=== PATIENT | male | born 1935 | race Asian ===

== ENCOUNTER → 2017-02-15 | Day surgery (SDC) | payer BC, OTHER ==
[~2017-02-15] VITALS: Ht 160 cm; Wt 81.6 kg
[~2017-02-15] MED LIST: ACETAMINOPHEN 325 MG TAB PO PRN; ACETYLCHOLINE OPHTH SOLN 1% 2ML As Ordered ONE; ASPI32ECTA PO; AcetaZOLAMIDE 500 MG ER CAP PO ONE; BALANCED SALT IRRIGATION SOLUTION 500ML BAG (FOR OR EYE MACHINE) As Ordered ONE; CEFUROXIME 1MG/0.1ML INTRACAMERAL INJ As Ordered ONE; CYCLOPENTOLATE 2% OPHTH SOLN OD ONE; D5W/0.2% SODIUM CHLORIDE 250 ML IV ONE; GABA-282 PO; HEALON DUET (HEALON 10MG/ML 0.55ML & HEALON ENDOCOAT 30MG/ML 0.85ML) As Ordered ONE; KETOROLAC 0.5% OPHTH SOLN OD ONE; LIDOCAINE 1% SDV 5 ML VIAL As Ordered ONE; LIDOCAINE 4% INJ 5 ML AMP OU ONE; LIPI20TA PO; MIDAZOLAM INJ 2 MG/2 ML VIAL (J2250) As Ordered ONE; NORV5TAB PO; OFLOXACIN 0.3 % (OCUFLOX) OPTH SOL 5ML OD ONE; PHENYLEPHRINE 2.5% OPHTH SOL 2ML OD ONE; PLAV75TA38 PO; POVIDONE-IODINE 5% OPHTH PREP SOL 30ML As Ordered ONE; PROPARACAINE 0.5% OPHTH SOL 15ML OD PRN; PROT1TAB2 PO; TOPR100T PO; TRAM50TA2 PO; TRIMETHOBENZAMIDE 300 MG CAP PO PRN; TROPICAMIDE 1% OPHTH SOLN 2 ML OD ONE; VITA100037 PO; fentaNYL 100 MCG/2 ML INJECTION (J3010) As Ordered ONE
[2017-02-15 14:00] VITALS: BP 107/58
--- NOTE | 2017-02-16 12:06 | RO ---
DATE OF PROCEDURE: 02/15/2017 PREPROCEDURE DIAGNOSIS: Age-related nuclear cataract, left eye. POSTPROCEDURE DIAGNOSIS: Age-related nuclear cataract, left eye. PROCEDURE: Femtosecond cataract extraction with posterior chamber intraocular lens. The lens used was Hoya model 250, 17.5 diopter. SURGEON: Mela David MD ASSISTANT MANAGER: ANESTHESIA: DESCRIPTION OF PROCEDURE: The patient was brought to the operating room and put under the femtosecond laser. A lid speculum was placed between the lids, and the laser was lowered on. Docking was achieved with good suction. The laser procedure was performed with no difficulty. The laser was then removed from the eye, and the lid speculum was removed. The laser was moved over to the operating microscope and prepped and draped in the usual fashion. A lid speculum was placed between the lids. The eye was fixated. The side port incision was opened up with a spatula. 1% non-preservative lidocaine was instilled; then, viscoelastic was instilled. The main incision was then opened with the spatula. The capsulorrhexis was removed from the eye with the Utrata forceps. The lens was then hydrodissected, and a phacoemulsification unit was used to make a groove in the nucleus and one meridian. The nucleus was cracked into four quadrants, and then each quadrant was removed with the phacoemulsification unit. Any remaining cortex was removed with the irrigation and aspiration (I and A) unit. The capsular bag was refilled with viscoelastic. A posterior chamber intraocular lens was placed in the capsular bag. The remaining viscoelastic was removed. The wound was hydrated. Miochol and cefuroxime were instilled. The wound was watertight. The patient tolerated the procedure well and went to the recovery room in stable condition.
== END | disposition home or self-care (01) ==
LOC: M SDC 09:48
PROVIDERS: ATTEND Ophthalmology
DX: H25.12 Age-related nuclear cataract, left eye (principal); I10 Essential (primary) hypertension; I25.5 Ischemic cardiomyopathy; E78.5 Hyperlipidemia, unspecified; K21.9 Gastro-esophageal reflux disease without esophagitis; I25.2 Old myocardial infarction; I25.10 Atherosclerotic heart disease of native coronary artery without angina pectoris; M12.9 Arthropathy, unspecified; M54.2 Cervicalgia; Z79.899 Other long term (current) drug therapy; Z79.82 Long term (current) use of aspirin; Z86.718 Personal history of other venous thrombosis and embolism; Z87.891 Personal history of nicotine dependence
CPT/HCPCS: 66984; J2250; J3010